=== PATIENT | female | born 1955 | race Caucasian/White ===

== ENCOUNTER 2016-04-10 21:52 | Emergency (ER) | payer BC ==
[~2016-04-10] VITALS: Ht 152.4 cm; Wt 63.6 kg
[2016-04-10 21:56] VITALS: BP 138/95; PULSE 86; TEMP 98.6
[2016-04-10] MEDS ORDERED: NORCO 325 MG-51 TAB PO (22:50)
== END 2016-04-10 23:06 | disposition home or self-care (01) ==
LOC: COL.ER 21:52
DX: S82.852A Displaced trimalleolar fracture of left lower leg, initial encounter for closed fracture (principal); W01.0XXA Fall on same level from slipping, tripping and stumbling without subsequent striking against object, initial encounter; Y92.009 Unspecified place in unspecified non-institutional (private) residence as the place of occurrence of the external cause

== ENCOUNTER 2016-04-17 11:17 | Day surgery (SDC) | payer BC ==
[2016-04-17] VITALS (8 sets, daily range): BP systolic 109–144; BP diastolic 73–94; PULSE 73–94; TEMP 97.7–98.6
[~2016-04-17] VITALS: Ht 152.4 cm; Wt 63.6 kg
[~2016-04-17 11:17] MED LIST: NORCO 325 MG-51 TAB PO
== END 2016-04-17 21:30 | disposition home or self-care (01) ==
LOC: SDCO 11:17 → SURG 18:02 → SDCO 21:30
DX: S82.842A Displaced bimalleolar fracture of left lower leg, initial encounter for closed fracture (principal); W10.9XXA Fall (on) (from) unspecified stairs and steps, initial encounter
CPT/HCPCS: OP; C1713; J0360; J0690; J2250; J2704; J2795; J3010

== ENCOUNTER → 2022-01-22 | Outpatient (CLI) | payer BC | LOC: MC.RAD 10:39 | DX: Z12.31 Encounter for screening mammogram for malignant neoplasm of breast (principal) ==